=== PATIENT | male | born 1985 | race Caucasian/White ===

== ENCOUNTER → 2021-01-05 15:07 | Outpatient (BNVA) | payer OTHER, SELFPAY | PROVIDERS: PCP Internal Medicine; Referring Provider Internal Medicine; Visit Provider Internal Medicine Cardiovascular Disease | DX: R00.2 Palpitations (principal); I48.0 Paroxysmal atrial fibrillation; I45.6 Pre-excitation syndrome; Z88.8 Allergy status to other drugs, medicaments and biological substances | CPT/HCPCS: 93005 ==

== ENCOUNTER → 2021-01-07 14:06 | Outpatient (REF) | payer OTHER, SELFPAY ==
--- NOTE | 2021-01-07 14:09 | HM_ITS ---
REQUESTING PHYSICIAN: Shalom Bauer M.D. INDICATION: Palpitations. ENROLLMENT PERIOD: 01/07/2021 to 02/06/2021 - 30 days. FINDINGS: In the above monitoring period, the underlying rhythm is sinus rhythm with sinus tachycardia. The rates ranged from 47 beats per minute to 181 beats per minute. There are occasional PVCs noted. Occasional PACs noted. The patient's symptoms of palpitations have correlated with PVCs and PACs at different times. During the times of sinus tachycardia, where the heart rate reached as much as 181/min, there is a mention of exercising. During the same time, he was again noticing palpitations and there were some PVCs along with the sinus tachycardia. CONCLUSIONS: Study shows underlying sinus rhythm, sinus tachycardia, isolated PACs, PVCs. Palpitations correlate with PACs, PVCs, and sinus tachycardia. However, the burden of ectopy does not seem high. MD MYRON Vu/ALECIA / [id number]
[2021-01-07 15:38] LABS: Anion Gap 11 (12-20); Blood Urea Nitrogen 18 mg/dL (9-16); Calcium 9.5 mg/dL (8.4-10.2); Carbon Dioxide 27 mmol/L (22-29); Chloride 107 mmol/L (96-108); Estimated Glomerular Filt Rate > 60; Glucose Random 95 mg/dL (60-115); Potassium 4.2 mmol/L (3.3-5.1); Sodium 141 mmol/L (135-145)
[2021-01-07 15:50] LABS: TSH reflex Free T4 0.84 uIU/mL (0.32-4.0)
== END ==
LOC: HO.CARD 14:06
PROVIDERS: PCP Internal Medicine; Visit Provider Internal Medicine Cardiovascular Disease
DX: R00.2 Palpitations (principal); I50.30 Unspecified diastolic (congestive) heart failure
CPT/HCPCS: 36415; 80048; 83735; 84443; 93270

== ENCOUNTER → 2022-03-23 12:24 | Outpatient (BNVA) | payer OTHER, SELFPAY | PROVIDERS: PCP Internal Medicine; Visit Provider Internal Medicine Cardiovascular Disease | DX: I49.3 Ventricular premature depolarization (principal); I48.0 Paroxysmal atrial fibrillation | CPT/HCPCS: 93005 ==

== ENCOUNTER 2024-03-26 12:46 | Outpatient (AMB) | payer OTHER, SELFPAY ==
--- NOTE | 2024-03-26 12:50 | A.OFFVIS_ITS ---
Vital Signs 03/26/24 12:51 Height 5 ft 10 in Weight 202 lb 13.204 oz BMI 29.1 BP 122/70 Blood Pressure Location Lt brachial Position Sitting Pulse 67 Intake Visit Reasons: 2 year follow up Intake Note: 2 year follow-up with ekg feeling great [employer] Required: No Allergies No Known Allergies Allergy (Verified 01/05/21 15:46) Medication List - Last Reconciled 03/26/24 by Shalom Bauer MD No Known Home Meds HPI Comments Details: Dennis comes for follow-up. He has been doing well from cardiac perspective. He has not had any recurrent symptoms of palpitations. No recurrent episodes of atrial fibrillation PVCs. He said in the last 2 years he has become lot more calmer has not had any significant anxiety or panic feeling. Ran half a marathon yesterday without any symptoms. Taking no meds currently. [facility] Medical History PVCs (premature ventricular contractions) WPW (Ylwyf-Iypjoqjtn-Dtnkn syndrome) Paroxysmal atrial fibrillation Review of Systems Const Denies chills, Denies fatigue, Denies fever(s), Denies frequent falls, Denies weakness, Denies weight gain and Denies weight loss ENT Denies dizziness Card Denies chest pain, Denies leg edema, Denies lightheadedness, Denies palpitations, Denies dyspnea, Denies dyspnea on exertion, Denies orthopnea and Denies other (loss of consciousness) Resp Denies cough, Denies dyspnea and Denies dyspnea on exertion GI Denies hematochezia and Denies change in stool character Musc Denies abnormal gait, Denies muscle weakness, Denies numbness, Denies radiating pain into limb and Denies tingling Neuro Denies abnormal gait, Denies dizziness, Denies frequent falls, Denies numbness, Denies tingling and Denies weakness Endo Denies fatigue and Denies palpitations Physical Exam Vital Signs: Last Vital Signs Pulse 67 03/26/24 12:51 BP 122/70 03/26/24 12:51 BMI result Body Mass Index 29.1 Const General: cooperative, comfortable, no acute distress, well developed, alert and awake Nutritional Appearance: average body habitus Orientation/consciousness: patient oriented x3 Limitations: no limitations Neck Neck: Yes trachea midline, Yes supple and Yes no JVD Resp Effort & Inspection: normal respiratory effort Auscultation: clear to auscultation bilaterally Cardio Jugular venous distension: no JVD Palpation: normal PMI Rate: regular rate Rhythm: regular rhythm Heart sounds: S1 normal heart sound present and S2 normal heart sound present GI Auscultation: normal bowel sounds Skin General skin exam: no rashes or lesions noted Neuro General: patient oriented x3 and no focal motor deficits Extrem General: Yes no clubbing, cyanosis or edema Psych Appearance: grossly normal Office Procedures EKG Details: EKG shows normal sinus rhythm with normal EKG [id number], Complete Assessment & Plan Assessment & Plan (1) Paroxysmal atrial fibrillation: Comment: 1 episode of documented atrial fibrillation in 2011. No recurrence since Code(s): I48.0 - Paroxysmal atrial fibrillation Category: Medical Plan: Paroxysmal atrial fibrillation as well as PVCs in the past driven by high stress and anxiety. Since then he has not much more in control of his life. He feels very less anxious. He says since then he has not had any significant palpitations arrhythmias. He is currently taking no medications. We discussed about stress mitigation strategies. We discussed about avoiding significant stimulants. He understands and agrees. No further pharmacotherapy is indicated at this point in time. Will follow up if symptoms recurs otherwise follow-up on a p.r.n. basis. Thank you for allowing me to partake in his care Coding Level of Care Code Est Pt Level 3 (11388) Diagnoses Paroxysmal atrial fibrillation I48.0 CPT Codes EKG - CPT: 73832-[id number], Complete ([id number])
[2024-03-26 12:51] VITALS: BP 122/70; PULSE 67; BMI 29.1
== END 2024-03-26 16:10 | disposition home or self-care (01) ==
PROVIDERS: PCP Internal Medicine; Visit Provider Internal Medicine Cardiovascular Disease
DX: I48.0 Paroxysmal atrial fibrillation (principal)
CPT/HCPCS: 93010; 99213

== ENCOUNTER → 2024-03-26 12:46 | Outpatient (BNVA) | payer OTHER, SELFPAY | PROVIDERS: PCP Internal Medicine; Visit Provider Internal Medicine Cardiovascular Disease | DX: I48.0 Paroxysmal atrial fibrillation (principal) | CPT/HCPCS: 93005 ==